=== PATIENT | male | born 1935 | race Caucasian/White ===

== ENCOUNTER 2019-05-14 09:40 | Observation (INO) | payer MEDICARE ==
[~2019-05-14] VITALS: Ht 171.4 cm; Wt 64.6 kg
[2019-05-14] MEDS ORDERED: SODIUM CHLORIDE 0.9% 1,000 ML IV SCH (09:50)
[2019-05-14 10:18] VITALS: BP 152/63
[2019-05-14] MEDS ORDERED: ASPI81TA45 PO (10:24)
[2019-05-14] MEDS ORDERED: AMLO-150 PO (10:24)
[2019-05-14] MEDS ORDERED: PLEASE ENTER HEIGHT AND WEIGHT MC SCH (10:30)
[2019-05-14 11:03] LABS: BASOPHILS # (AUTO) 0.05 x10^3/uL (0-0.1); BASOPHILS % (AUTO) 1 % (0-1); EOSINOPHILS # (AUTO) 0.09 x10^3/uL (0-0.4); EOSINOPHILS % (AUTO) 1 % (1-7); LYMPHOCYTES # (AUTO) 1.94 x10^3/uL (1-3.4); LYMPHOCYTES % (AUTO) 26 % (22-44); MD NO; MEAN CORPUSCULAR HEMOGLOBIN 29.9 pg (27.5-34.5); MEAN CORPUSCULAR HGB CONC 32.7 g/dL (33.2-36.2); MEAN CORPUSCULAR VOLUME 91.5 fL (81-97); MEAN PLATELET VOLUME 8.2 fL (7.4-10.4); MONOCYTES # (AUTO) 0.39 x10^3/uL (0.2-0.8); MONOCYTES % (AUTO) 5 % (2-9); NEUTROPHILS # (AUTO) 5.11 x10^3/uL (1.8-6.8); NEUTROPHILS % (AUTO) 68 % (42-75); PLATELET COUNT 238 x10^3/uL (130-400); RED BLOOD COUNT 4.56 x10^6/uL (4.38-5.82)
[2019-05-14 11:08] LABS: ANION GAP 7 mmol/L (5-15); CALCIUM 8.8 mg/dL (8.5-10.1); CHLORIDE 106 mmol/L (98-107); CREATININE 0.89 mg/dL (0.7-1.3)
[2019-05-14] MEDS ORDERED: LIDOCAINE-MPF 1%, 5ML ONE (11:49)
[2019-05-14] MEDS ORDERED: MIDAZOLAM 1 MG/ML, 5ML ONE (11:49)
[2019-05-14] MEDS ORDERED: FENTANYL PF 100 MCG/2ML ONE (11:49)
[2019-05-14] MEDS ORDERED: NITROGLYCERIN 5 MG/ML, 10ML ONE (11:49)
[2019-05-14] MEDS ORDERED: HEPARIN 1,000 UNITS/ML, 10ML ONE (11:50)
[2019-05-14] MEDS ORDERED: VERAPAMIL 2.5 MG/ML, 2ML ONE (11:51)
[2019-05-14] MEDS ORDERED: BIVALIRUDIN 250 MG ONE (12:27)
[2019-05-14] MEDS ORDERED: TICAGRELOR 90 MG TABLET ONE (12:48)
[2019-05-14] MEDS: SODIUM CHLORIDE 0.9% 1,000 ML IV SCH ×2 (13:04→21:04)
[2019-05-14] MEDS ORDERED: ONDANSETRON 2MG/ML, 2ML IVPush PRN (13:30)
[2019-05-14] MEDS ORDERED: ACETAMINOPHEN 325 MG TABLET PO PRN (13:30)
[2019-05-14] MEDS ORDERED: ZOLPIDEM 5MG TABLET PO PRN (13:30)
[2019-05-14] MEDS ORDERED: BISACODYL 5 MG EC TABLET PO PRN (13:30)
[2019-05-14 14:35] VITALS: BP 130/67
[2019-05-14 20:35] VITALS: BP 165/68
[2019-05-14] MEDS ORDERED: ATORVASTATIN 40 MG TABLET PO SCH (21:00)
[2019-05-14] MEDS: TICAGRELOR 90 MG TABLET PO SCH (21:36)
[2019-05-14 22:10] VITALS: BP 162/66
[2019-05-14 23:30] VITALS: BP 132/58
[2019-05-15 01:59] VITALS: BP_SYST 126; BP_SYST 146; BP_DIAS 70; BP_DIAS 72
[2019-05-15 05:23] LABS: ANION GAP 5 mmol/L (5-15); CALCIUM 8.7 mg/dL (8.5-10.1); CHLORIDE 104 mmol/L (98-107); CREATININE 0.79 mg/dL (0.7-1.3)
[2019-05-15 08:17] VITALS: BP 139/71
[2019-05-15] MEDS ORDERED: ASPIRIN 81 MG TABLET EC PO SCH (09:00)
[2019-05-15] MEDS ORDERED: AMLODIPINE 5 MG TABLET PO SCH (09:00)
[2019-05-15] MEDS: TICAGRELOR 90 MG TABLET PO SCH (09:44)
[2019-05-15] MEDS ORDERED: ATOR40TA78 PO (09:59)
[2019-05-15] MEDS ORDERED: TICA90TA PO (09:59)
== END 2019-05-15 11:40 | disposition home or self-care (01) ==
LOC: CACL 09:40 → ORIP 13:04 → 5SO 13:20 → DCLOUNGE 05-15 11:25
PROVIDERS: ADMIT Internal Medicine Cardiovascular Disease; ATTEND Internal Medicine Cardiovascular Disease
DX: I35.0 Nonrheumatic aortic (valve) stenosis (principal); I10 Essential (primary) hypertension; N28.89 Other specified disorders of kidney and ureter; F17.210 Nicotine dependence, cigarettes, uncomplicated; Z88.8 Allergy status to other drugs, medicaments and biological substances; R06.02 Shortness of breath
CPT/HCPCS: 36415; 80048; 85014; 85018; 85025; 93454; 99156; 99157; C1725; C1769; C1874; C1887; C1894; C9600; C9601; G0378; J0583; J1644; J2250; J3010; Q9967; J7030

== ENCOUNTER → 2019-05-22 | Outpatient (CLI) | payer MEDICARE ==
[~2019-05-22] MED LIST: AMLO-150 PO; ASPI81TA45 PO; ATOR40TA78 PO; TICA90TA PO; VISIPAQUE 320 MG/ML, 150ML BOTTLE ONE
== END | disposition home or self-care (01) ==
LOC: CVU 10:50
PROVIDERS: ATTEND Internal Medicine
DX: C64.2 Malignant neoplasm of left kidney, except renal pelvis (principal); I65.23 Occlusion and stenosis of bilateral carotid arteries; I35.0 Nonrheumatic aortic (valve) stenosis; R06.02 Shortness of breath; K80.20 Calculus of gallbladder without cholecystitis without obstruction; F17.200 Nicotine dependence, unspecified, uncomplicated
CPT/HCPCS: 71275; 74174; 93880; 94060; 94726; 94729; Q9967

== ENCOUNTER 2019-05-29 07:04 | Inpatient (IN) | payer MEDICARE ==
[~2019-05-29] VITALS: Ht 170.2 cm; Wt 67.3 kg
[~2019-05-29 07:04] MED LIST changes: +CHLORHEXIDINE 15 ML UDC ONE; -VISIPAQUE 320 MG/ML, 150ML BOTTLE ONE
[2019-05-29] MEDS ORDERED: SODIUM CHLORIDE 0.9% 1,000 ML IV ONE (07:23)
[2019-05-29] MEDS ORDERED: CHLORHEXIDINE 15 ML UDC MM PRN (07:30)
[2019-05-29] MEDS ORDERED: ONDANSETRON 2MG/ML, 2ML IVPush PRN ×2 (07:30→10:30)
[2019-05-29 08:10] LABS: BASOPHILS # (AUTO) 0.04 x10^3/uL (0-0.1); BASOPHILS % (AUTO) 0 % (0-1); EOSINOPHILS # (AUTO) 0.11 x10^3/uL (0-0.4); EOSINOPHILS % (AUTO) 1 % (1-7); LYMPHOCYTES # (AUTO) 1.18 x10^3/uL (1-3.4); LYMPHOCYTES % (AUTO) 14 % (22-44); MD NO; MEAN CORPUSCULAR HGB CONC 33.6 g/dL (33.2-36.2); MEAN CORPUSCULAR VOLUME 89.1 fL (81-97); MEAN PLATELET VOLUME 7.7 fL (7.4-10.4); MONOCYTES # (AUTO) 0.46 x10^3/uL (0.2-0.8); MONOCYTES % (AUTO) 6 % (2-9); NEUTROPHILS # (AUTO) 6.54 x10^3/uL (1.8-6.8); NEUTROPHILS % (AUTO) 79 % (42-75); PLATELET COUNT 243 x10^3/uL (130-400); RED BLOOD COUNT 4.87 x10^6/uL (4.38-5.82); RED CELL DISTRIBUTION WIDTH 12.9 % (9.4-14.8)
[2019-05-29 08:20] LABS: INTERNATIONAL NORMALIZED RATIO 1.02 (0.93-1.1); PROTHROMBIN TIME 10.7 Seconds (9.6-11.5)
[2019-05-29 08:25] LABS: CHLORIDE 104 mmol/L (98-107)
[2019-05-29 08:33] LABS: ALANINE AMINOTRANSFERASE 43 U/L (12-78); ALBUMIN 4.1 g/dL (3.4-5.0); ALKALINE PHOSPHATASE 62 U/L (45-117); ANION GAP 8 mmol/L (5-15); BILIRUBIN,TOTAL 0.8 mg/dL (0.2-1.0); CALCIUM 9.1 mg/dL (8.5-10.1); CREATININE 0.97 mg/dL (0.7-1.3); TOTAL PROTEIN 7.7 g/dL (6.4-8.2)
[2019-05-29] MEDS ORDERED: FENTANYL PF 250 MCG/5ML ONE (09:02)
[2019-05-29] MEDS ORDERED: PROPOFOL 10 MG/ML, 20ML ONE (09:04)
[2019-05-29] MEDS ORDERED: SUCCINYLCHOLINE 20 MG/ML, 10ML ONE (09:04)
[2019-05-29] MEDS ORDERED: ROCURONIUM 10MG/ML,5ML ONE (09:04)
[2019-05-29] MEDS ORDERED: PROTAMINE SULFATE 10 MG/ML, 25ML ONE (10:12)
[2019-05-29] MEDS ORDERED: HEPARIN 1,000 UNITS/ML, 30ML ONE (10:12)
[2019-05-29] MEDS ORDERED: DEXAMETHASONE 4 MG/ML, 1ML ONE ×2 (10:12)
[2019-05-29] MEDS ORDERED: ONDANSETRON 2MG/ML, 2ML ONE ×2 (10:12)
[2019-05-29] MEDS ORDERED: hydrALAzine 20 MG/ML, 1ML IVPush PRN (10:30)
[2019-05-29] MEDS ORDERED: LABETALOL 5 MG/ML SYR. (IV ONLY) IVPush PRN (10:30)
[2019-05-29] MEDS ORDERED: ACETAMINOPHEN 325 MG TABLET PO PRN (10:30)
[2019-05-29] MEDS ORDERED: HYDROcodone/APAP 5/325 TABLET PO PRN (10:30)
[2019-05-29 14:00] VITALS: BP 137/59
[2019-05-29 17:18] VITALS: BP 143/56
[2019-05-29] MEDS: TICAGRELOR 90 MG TABLET PO SCH (20:01)
[2019-05-29] MEDS ORDERED: ATORVASTATIN 40 MG TABLET PO SCH (21:00)
[2019-05-29 21:19] VITALS: BP 143/63
[2019-05-30 03:02] VITALS: BP 144/66
[2019-05-30 05:13] LABS: ANION GAP 7 mmol/L (5-15); CALCIUM 8.7 mg/dL (8.5-10.1); CHLORIDE 106 mmol/L (98-107)
[2019-05-30 05:15] LABS: CREATININE 0.79 mg/dL (0.7-1.3)
[2019-05-30 05:23] LABS: BASOPHILS # (AUTO) 0.01 x10^3/uL (0-0.1); BASOPHILS % (AUTO) 0 % (0-1); EOSINOPHILS % (AUTO) 0 % (1-7); LYMPHOCYTES # (AUTO) 1.04 x10^3/uL (1-3.4); LYMPHOCYTES % (AUTO) 8 % (22-44); MD NO; MEAN CORPUSCULAR HEMOGLOBIN 29.7 pg (27.5-34.5); MEAN CORPUSCULAR HGB CONC 33.5 g/dL (33.2-36.2); MEAN CORPUSCULAR VOLUME 88.8 fL (81-97); MEAN PLATELET VOLUME 7.9 fL (7.4-10.4); MONOCYTES # (AUTO) 0.81 x10^3/uL (0.2-0.8); MONOCYTES % (AUTO) 6 % (2-9); NEUTROPHILS # (AUTO) 11.55 x10^3/uL (1.8-6.8); NEUTROPHILS % (AUTO) 86 % (42-75); PLATELET COUNT 205 x10^3/uL (130-400); RED BLOOD COUNT 4.19 x10^6/uL (4.38-5.82); RED CELL DISTRIBUTION WIDTH 12.5 % (9.4-14.8)
[2019-05-30 08:00] VITALS: BP 152/56
[2019-05-30] MEDS: TICAGRELOR 90 MG TABLET PO SCH (08:49)
[2019-05-30] MEDS ORDERED: ASPIRIN 81 MG TABLET EC PO SCH (09:00)
[2019-05-30] MEDS ORDERED: AMLODIPINE 5 MG TABLET PO SCH (09:00)
[2019-05-30] MEDS ORDERED: ACET325T26 PO (10:30)
== END 2019-05-30 12:45 | disposition home or self-care (01) | DRG 266 ==
LOC: ORIP 07:04 → CCU 10:26 → 5SO 11:21 → DCLOUNGE 05-30 12:31
PROVIDERS: ADMIT Internal Medicine Cardiovascular Disease; ATTEND Internal Medicine Cardiovascular Disease
PROC: B246ZZ4 Ultrasonography of Right and Left Heart, Transesophageal (ICD-10-PCS; 2019-05-29)
PROC: 03HY32Z Insertion of Monitoring Device into Upper Artery, Percutaneous Approach (ICD-10-PCS; 2019-05-29)
PROC: B3101ZZ Fluoroscopy of Thoracic Aorta using Low Osmolar Contrast (ICD-10-PCS; 2019-05-29)
PROC: 4A09X5Z Measurement of Respiratory Flow, External Approach (ICD-10-PCS; 2019-05-29)
PROC: 02RF38Z Replacement of Aortic Valve with Zooplastic Tissue, Percutaneous Approach (ICD-10-PCS; principal; 2019-05-29 09:30)
DX: I35.0 Nonrheumatic aortic (valve) stenosis (principal); Z00.6 Encounter for examination for normal comparison and control in clinical research program; I50.33 Acute on chronic diastolic (congestive) heart failure; I11.0 Hypertensive heart disease with heart failure; N28.89 Other specified disorders of kidney and ureter; I25.10 Atherosclerotic heart disease of native coronary artery without angina pectoris; Z95.5 Presence of coronary angioplasty implant and graft; Z72.0 Tobacco use
CPT/HCPCS: 33361; 36415; 80048; 80053; 83880; 85025; 85347; 85610; 85730; 86850; 86900; 86923; 87081; 93005; 93306; 93312; 93321; 93325; 93355; C1760; C1769; C1894; G0378; J1100; J1644; J2405; J2704; J2720; J3010; J0330; Q9967

== ENCOUNTER 2019-07-03 14:01 | Outpatient (CLI) | payer MEDICARE ==
[~2019-07-03 14:01] MED LIST changes: +ACET325T26 PO; -CHLORHEXIDINE 15 ML UDC ONE
== END 2019-07-03 23:59 | disposition home or self-care (01) ==
LOC: CVU 14:01
PROVIDERS: ATTEND Internal Medicine Cardiovascular Disease
DX: I34.0 Nonrheumatic mitral (valve) insufficiency (principal); I65.29 Occlusion and stenosis of unspecified carotid artery
CPT/HCPCS: 93306; 93356

== ENCOUNTER → 2019-08-02 | Outpatient (CLI) | payer MEDICARE ==
[~2019-08-02] MED LIST changes: +OMNIPAQUE 350 MG/ML, 100ML BOTTLE ONE
[2019-08-02 12:05] LABS: CREATININE 0.94 mg/dL (0.7-1.3)
== END | disposition home or self-care (01) ==
LOC: RAD 11:34
PROVIDERS: ATTEND Internal Medicine Hematology & Oncology
DX: C64.9 Malignant neoplasm of unspecified kidney, except renal pelvis (principal); K57.30 Diverticulosis of large intestine without perforation or abscess without bleeding; K80.20 Calculus of gallbladder without cholecystitis without obstruction; J43.2 Centrilobular emphysema; N28.89 Other specified disorders of kidney and ureter; M47.9 Spondylosis, unspecified
CPT/HCPCS: 36415; 71260; 74177; 78306; 82565; A9503; Q9967

== ENCOUNTER 2019-08-09 07:10 | Day surgery (SDC) | payer MEDICARE ==
[~2019-08-09] VITALS: Ht 170.2 cm; Wt 65.0 kg
[~2019-08-09 07:10] MED LIST changes: -OMNIPAQUE 350 MG/ML, 100ML BOTTLE ONE
[2019-08-09 08:35] VITALS: BP 187/75
[2019-08-09 09:10] LABS: INTERNATIONAL NORMALIZED RATIO 1.01 (0.93-1.1); PROTHROMBIN TIME 10.7 Seconds (9.6-11.5)
[2019-08-09] MEDS ORDERED: FENTANYL PF 100 MCG/2ML ONE ×2 (09:46→09:47)
[2019-08-09] MEDS ORDERED: MIDAZOLAM 1 MG/ML, 5ML ONE (09:47)
[2019-08-09] MEDS ORDERED: NALOXONE 1 MG/ML, 2ML ONE (09:47)
[2019-08-09] MEDS ORDERED: FLUMAZENIL 0.1 MG/1 ML, 5ML ONE (09:47)
== END 2019-08-09 10:32 | disposition home or self-care (01) ==
LOC: OUT 07:10
PROVIDERS: ATTEND Internal Medicine Hematology & Oncology
DX: N28.89 Other specified disorders of kidney and ureter (principal); Z53.8 Procedure and treatment not carried out for other reasons; I10 Essential (primary) hypertension; Z87.891 Personal history of nicotine dependence; Z95.2 Presence of prosthetic heart valve
CPT/HCPCS: 36415; 85610; J2250; J3010; J2310

== ENCOUNTER → 2020-05-16 | Outpatient (CLI) | payer MEDICARE ==
[~2020-05-16] MED LIST changes: +ASCO1500 PO; +CEFD300C37 PO; +CHOL500045 PO; +DOCU-131 PO; +DOXY-162 PO; +OMNIPAQUE 350 MG/ML, 100ML BOTTLE ONE; +OXYC5TAB3 PO; +TRAM50TA2 PO; +ZINC220C7 PO
== END | disposition home or self-care (01) ==
LOC: CFH 15:56
PROVIDERS: ATTEND Student in an Organized Health Care Education/Training Program
DX: N28.1 Cyst of kidney, acquired (principal); R91.8 Other nonspecific abnormal finding of lung field; J43.9 Emphysema, unspecified; Z90.5 Acquired absence of kidney; Z85.528 Personal history of other malignant neoplasm of kidney
CPT/HCPCS: 71250; 74178; 82565; Q9967

== ENCOUNTER → 2020-06-02 | Outpatient (CLI) | payer MEDICARE ==
[~2020-06-02] MED LIST changes: -OMNIPAQUE 350 MG/ML, 100ML BOTTLE ONE
== END | disposition home or self-care (01) ==
LOC: CVU 12:55
PROVIDERS: ATTEND Internal Medicine Cardiovascular Disease
DX: I08.1 Rheumatic disorders of both mitral and tricuspid valves (principal); I65.29 Occlusion and stenosis of unspecified carotid artery; R06.02 Shortness of breath
CPT/HCPCS: 93306